=== PATIENT | female | born 1990 | race Asian ===

== ENCOUNTER 2017-03-26 11:26 | Outpatient (CLI) | payer OTHER ==
--- NOTE | 2017-03-26 14:09 | Diagnostic Imaging Report ---
Indication: PAIN Technique: 3 views left foot Comparison: none Findings: There is mild pes planus. No acute fractures. No dislocations. Joint spaces are preserved Impression: No acute process
== END 2017-03-26 13:26 | disposition home or self-care (01) ==
LOC: RAD 11:26
DX: M25.572 Pain in left ankle and joints of left foot (principal); M21.42 Flat foot [pes planus] (acquired), left foot